=== PATIENT | female | born 1935 | race Caucasian/White ===

== ENCOUNTER 2020-07-19 18:08 | Emergency (ER) | payer MEDICARE, OTHER, SELFPAY ==
--- NOTE | ~2020-07-19 | XR_ITS ---
EXAMINATION: XR CHEST CLINICAL INFORMATION: Cough COMPARISON: None TECHNIQUE: Frontal view of the chest was obtained. FINDINGS: Compared to the prior study, lung volumes are slightly decreased and there is mild interstitial prominence. No gross consolidations, lung masses or pleural effusions are seen XR/XR chest 1V IMPRESSION: No acute intrathoracic disease. Mild interstitial prominence may represent some mild bronchitis.
[2020-07-19 19:19] VITALS: BP 200/93; PULSE 128; RESP 16; TEMP 36.7; O2SAT 97; BMI 38.0
[2020-07-19 20:00] LABS: Basophils Percent Auto 0.3 % (0-2); Hematocrit 38.1 % (37-47); Hemoglobin 11.9 g/dl (12.0-16.0); Imm Gran Abs Auto 0.03 X10*3/uL (0.00-0.03); Imm Gran Pct Auto 0.5 % (0.0-0.4); Lymphocytes Absolute Auto 0.7 X10*3/uL (1.2-4.9); MANUAL DIFF FLAG SCAN; Mean Corpuscular HGB Conc 31.2 g/dl (31.0-35.0); Mean Corpuscular Hemoglobin 26.7 pg (27.0-33.0); Mean Corpuscular Volume 85.4 fL (80-98); Mean Platelet Volume 10.4 fL (9.4-12.3); Monocytes Absolute Auto 0.3 X10*3/uL (0.1-1.2); Monocytes Percent Auto 4.8 % (2-11); Neutrophils Absolute Auto 5.5 X10*3/uL (2.0-8.3); Neutrophils Percent Auto 84.4 % (45-73); Platelet Count 277 X10*3/uL (160-400); Red Blood Count 4.46 X10*6/uL (4.20-5.50); Red Cell Distribution Width 12.5 % (11.0-16.0); SCAN SMEAR FLAG 1; White Blood Count 6.5 X10*3/uL (4.8-10.8)
[2020-07-19 20:19] LABS: Alanine Aminotransferase 15 U/L (0-31); Albumin Level 4.2 g/dL (3.5-5.0); Alkaline Phosphatase 65 U/L (39-117); Anion Gap 13 (12-20); Aspartate Amino Transferase 13 U/L (5-31); Bilirubin Total 0.5 mg/dL (0.0-1.0); Blood Urea Nitrogen 12 mg/dL (9-16); Calcium 9.5 mg/dL (8.4-10.2); Carbon Dioxide 28 mmol/L (22-29); Chloride 96 mmol/L (96-108); Creatinine Clr Calc Pharmacy 28.1; Estimated Glomerular Filt Rate > 60; Glucose Random 335 mg/dL (60-115); Potassium 4.4 mmol/L (3.3-5.1); Sodium 133 mmol/L (135-145); Total Protein 6.6 g/dL (6.5-8.0)
[2020-07-19 20:39] LABS: SLIDE REVIEW VERIFIED
--- NOTE | 2020-07-19 21:51 | ED_ITS ---
HPI - Altered Mental Status General Chief Complaint: Urogenital-Female Stated Complaint: ams Time Seen by Provider: 07/19/20 21:50 Source: family Mode of arrival: ambulatory Limitations: altered mental status History of Present Illness HPI narrative: Patient history of dementia brought by her daughter for increased confusion since today afternoon had similar episode when she had UTI in the past also noticed that patient has increased leg swelling and occasional dry cough. No chest pain no shortness of breath no black stools no nausea vomiting /abdominal pain MD complaint: altered mental status Onset (ago): hour(s) Timing confirmed by: family member Severity: mild Consistency of symptoms: waxing and waning Related Data Previous Rx's Medication Instructions Recorded hydrochlorothiazide 12.5 mg PO QAM #20 tab 07/20/20 Allergies Allergy/AdvReac Type Severity Reaction Status Date / Time betablockers Allergy Unknown lathargic Uncoded 03/19/12 00:00 TEDROL AdvReac Unknown TACHYCARDIA Uncoded 01/01/20 15:18 Review of Systems Review of Systems: Constitutional : No Weight loss, No Fever, No Chills ENT/Mouth : No sore throat, No Rhinorrhea Eyes: No Eye Pain, No Swelling Cardiovascular : No Chest Pain, no palpitations Respiratory : + Cough, No Sputum, no shortness of breath Gastrointestinal : no Nausea, No Vomiting, No Diarrhea, No abdominal Pain, no black stools Genitourinary : No Dysuria, No Urinary Frequency Musculoskeletal : No joint pain, No Myalgias, No Joint Swelling Skin : No Skin Lesions, No rash Neuro : No Weakness, No Numbness, No Dizziness, No Headache Psych : No Anxiety/Panic, No Depression Heme/Lymph: No Bruising, No Lymphadenopathy Endocrine : No Polyuria, No Polydipsia All other systems reviewed and are negative per family member [facility], [facility] Past Medical History Medical History Alzheimer disease Diabetes High cholesterol Hypertension Surgical History History of hip replacement, total Social History Social History Smoking Status: Former smoker Use of substances other than those prescribed or required for medical reasons: No Advance Directives: No Advance Directives Information Provided: No Physical Exam Vital Signs: Vital Signs: Last Vital Signs Temp 98.6 F 07/19/20 22:00 Pulse 115 H 07/19/20 22:00 Resp 18 07/19/20 22:00 BP 176/86 H 07/19/20 22:00 Pulse Ox 97 07/19/20 22:00 Body Mass Index 38.0 Const: General: comfortable and no acute distress Orie ntation/consciousness: oriented to person and oriented to place HENMT: Head: Yes normocephalic and Yes atraumatic Ears: hearing grossly impaired Mouth: Normal oral and palatal mucosa present Eyes: General: appearance normal, both eyes and all related structures C onjunctivae: conjunctivae normal Sclerae: sclerae normal Neck: Neck: Yes normal visual inspection, Yes full ROM and Yes no JVD Chest: Chest palpation & inspection: normal inspection of the chest Resp: Effort & Inspection: normal respiratory effort Auscultation: clear to auscultation bilaterally Cardio: Palpation: normal PMI Rate: regular rate Rhythm: regular rhythm Heart sounds: S1 normal heart sound present, S2 normal heart sound present and Murmur heart sound present GI: Inspection: Yes normal to inspection Palpation (GI): Soft to palpation Auscultation: normal bowel sounds : General: Yes no CVA tenderness Back/Spine/Pelvis: Back: no CVA tenderness Thoracic/Lumbar Spine: thoracic and lumbar spine normal to inspection Skin: General skin exam: no rashes or lesions noted Neuro: General: oriented to person, oriented to place, gait normal, tone normal, moves all extremities, no focal motor deficits and CN's II-XI intact bilaterally Extrem: General: Yes full ROM, Yes no calf tenderness, Yes normal gait and Yes pedal edema (4+) MDM - Altered Mental Status MDM Narrative Medical decision making narrative: Patient transient confusion likely from enzyme of dementia patient workup is negative for any significant infection urine is also negative for UTI patient is back to normal at this time patient's leg edema is likely from dependent . Will give hydrochlorothiazide daily advised patient to follow-up with PCP for further evaluation Differential Diagnosis Differential diagnosis: Likely altered mental status and dementia Lab Data Attestation: I reviewed the patient's lab results. Result diagrams: 07/19/20 19:50 07/19/20 19:50 Labs: Lab Results 04/05/21 04/05/21 04/05/21 Range/Units 19:50 19:50 19:50 WBC 6.5 (4.8-10.8) X10*3/uL RBC 4.46 (4.20-5.50) X10*6/uL Hgb 11.9 L (12.0-16.0) g/dl Hct 38.1 (37-47) % MCV 85.4 (80-98) fL MCH 26.7 L (27.0-33.0) pg MCHC 31.2 (31.0-35.0) g/dl RDW 12.5 (11.0-16.0) % Plt Count 277 (160-400) X10*3/uL MPV 10.4 (9.4-12.3) fL Immature Gran % (Auto) 0.5 H (0.0-0.4) % Neut % (Auto) 84.4 H (45-73) % Lymph % (Auto) 10.0 L (20-40) % [place] % (Auto) 4.8 (2-11) % Eos % (Auto) 0.0 (0-4) % Baso % (Auto) 0.3 (0-2) % Lymph # (Auto) 0.7 L (1.2-4.9) X10*3/uL [place] # (Auto) 0.3 (0.1-1.2) X10*3/uL Eos # (Auto) 0.0 (0.0-0.4) X10*3/uL Baso # (Auto) 0.0 (0.0-0.2) X10*3/uL Abs Immat Gran (auto) 0.03 (0.00-0.03) X10*3/uL Absolute Neuts (auto) 5.5 (2.0-8.3) X10*3/uL Absolute Nucleated RBC 0.000 (0.0-0.012) X10*3/uL Nucleated RBC % (auto) 0.0 (0.0-0.2) /100WBC Smear Tech's Comments VERIFIED Hold Blue Top SEE NOTE Sodium 133 L (135-145) mmol/L Potassium 4.4 (3.3-5.1) mmol/L Chloride 96 (96-108) mmol/L Carbon Dioxide 28 (22-29) mmol/L Anion Gap 13 (12-20) BUN 12 (9-16) mg/dL Creatinine 0.84 (0.5-1.4) mg/dL Estim Creat Clear Calc 28.1 Estimated GFR > 60 Random Glucose 335 H (60-115) mg/dL Calcium 9.5 (8.4-10.2) mg/dL Total Bilirubin 0.5 (0.0-1.0) mg/dL AST 13 (5-31) U/L ALT 15 (0-31) U/L Alkaline Phosphatase 65 (39-117) U/L B-Natriuretic Peptide (<100) pg/mL Total Protein 6.6 (6.5-8.0) g/dL Albumin 4.2 (3.5-5.0) g/dL Urine Color Urine Appearance Urine pH (5.0-8.0) Ur Specific [place] (1.005-1.025) Urine Protein (NEG-TRACE) MG/DL Urine Glucose (UA) (NEG) MG/DL Urine Ketones (NEG) MG/DL Urine Blood (NEG) Urine Nitrite (NEG) Ur Leukocyte Esterase (NEG) Urine RBC (0) /HPF Urine WBC (0-4) /HPF Ur Squamous Epith Cells /LPF Urine Bacteria /LPF Urine Mucus /LPF 07/19/20 07/19/20 Range/Units 19:50 23:25 WBC (4.8-10.8) X10*3/uL RBC (4.20-5.50) X10*6/uL Hgb (12.0-16.0) g/dl Hct (37-47) % MCV (80-98) fL MCH (27.0-33.0) pg MCHC (31.0-35.0) g/dl RDW (11.0-16.0) % Plt Count (160-400) X10*3/uL MPV (9.4-12.3) fL Immature Gran % (Auto) (0.0-0.4) % Neut % (Auto) (45-73) % Lymph % (Auto) (20-40) % [place]cl[place] % (Auto) (2-11) % Eos % (Auto) (0-4) % Baso % (Auto) (0-2) % Lymph # (Auto) (1.2-4.9) X10*3/uL [place] # (Auto) (0.1-1.2) X10*3/uL Eos # (Auto) (0.0-0.4) X10*3/uL Baso # (Auto) (0.0-0.2) X10*3/uL Abs Immat Gran (auto) (0.00-0.03) X10*3/uL Absolute Neuts (auto) (2.0-8.3) X10*3/uL Absolute Nucleated RBC (0.0-0.012) X10*3/uL Nucleated RBC % (auto) (0.0-0.2) /100WBC Smear Tech's Comments Hold Blue Top Sodium (135-145) mmol/L Potassium (3.3-5.1) mmol/L Chloride (96-108) mmol/L Carbon Dioxide (22-29) mmol/L Anion Gap (12-20) BUN (9-16) mg/dL Creatinine (0.5-1.4) mg/dL Estim Creat Clear Calc Estimated GFR Random Glucose (60-115) mg/dL Calcium (8.4-10.2) mg/dL Total Bilirubin (0.0-1.0) mg/dL AST (5-31) U/L ALT (0-31) U/L Alkaline Phosphatase (39-117) U/L B-Natriuretic Peptide 76 (<100) pg/mL Total Protein (6.5-8.0) g/dL Albumin (3.5-5.0) g/dL Urine Color YELLOW Urine Appearance CLEAR Urine pH 5.5 (5.0-8.0) Ur Specific [place] >= 1.030 H (1.005-1.025) Urine Protein 1+ H (NEG-TRACE) MG/DL Urine Glucose (UA) 500 H (NEG) MG/DL Urine Ketones 15 (NEG) MG/DL Urine Blood TRACE (NEG) Urine Nitrite NEG (NEG) Ur Leukocyte Esterase NEG (NEG) Urine RBC 0-2 (0) /HPF Urine WBC 1-4 (0-4) /HPF Ur Squamous Epith Cells TRACE /LPF Urine Bacteria NONE /LPF Urine Mucus TRACE /LPF Discharge Plan Discharge Clinical Impression: Dependent edema Dementia Qualifiers: Dementia type: Alzheimer's Alzheimer's disease onset: late-onset Dementia behavioral disturbance: without behavioral disturbance Qualified Code(s): G30.1 - Alzheimer's disease with late onset Patient Disposition: Home, Self-Care Instructions: Alzheimer Disease (DC), Leg Edema (ED) Additional Instructions: Keep the legs elevated. Take water pill daily for increased swelling as needed. Follow-up with your PCP Prescriptions: New hydrochlorothiazide 12.5 mg tablet 12.5 mg PO QAM Qty: 20 RF: 0
[2020-07-19 22:00] VITALS: BP 176/86; PULSE 115; RESP 18; TEMP 37; O2SAT 97
[2020-07-19 22:34] LABS: B Type Natriuretic Peptide 76 pg/mL (<100)
[2020-07-19 23:46] LABS: Glucose Urine UA 500 MG/DL (NEG); Leukocyte Esterase Urine NEG (NEG); Nitrite Urine NEG (NEG); PH 5.5 (5.0-8.0); Specific Gravity - Urine >= 1.030 (1.005-1.025); Urine Blood TRACE (NEG); Urine Ketones 15 MG/DL (NEG); Urine Protein 1+ MG/DL (NEG-TRACE)
[2020-07-19 23:52] LABS: Appearance Urine CLEAR; Color Urine YELLOW
[2020-07-20 00:02] LABS: Mucus Urine TRACE /LPF; RBC Urine 0-2 /HPF (0); Squamous Epithelial Cell Urine TRACE /LPF
== END 2020-07-20 00:27 | disposition home or self-care (01) ==
PROVIDERS: Emergency Provider Internal Medicine; PCP Internal Medicine
DX: G30.1 Alzheimer's disease with late onset (principal); R41.82 Altered mental status, unspecified; R60.0 Localized edema; R05 Cough; Z79.899 Other long term (current) drug therapy; Z87.891 Personal history of nicotine dependence
CPT/HCPCS: 36415; 71045; 80053; 81001; 83880; 85025; 99284

== ENCOUNTER 2020-12-11 14:30 | Emergency (ER) | payer MEDICARE, OTHER, SELFPAY ==
--- NOTE | ~2020-12-11 | XR_ITS ---
EXAMINATION: XR CHEST CLINICAL INFORMATION: Lower extremity swelling. Evaluate for CHF. COMPARISON: Chest x-ray July 19, 2020 TECHNIQUE: 2 views of the chest were obtained. FINDINGS: Cardiac silhouette is normal in size. Atherosclerotic disease of the aortic arch. The lungs are well aerated. There is no lobar consolidation. No pleural effusion or pneumothorax. Diffuse osteopenia with mild degenerative changes of the spine. Mild anterior compression deformity of a lower thoracic vertebral body. XR/XR chest 2V IMPRESSION: No acute pulmonary pathology.
--- NOTE | ~2020-12-11 | CT_ITS ---
EXAMINATION: CT HEAD WITHOUT CONTRAST CLINICAL INFORMATION: AMS COMPARISON: None TECHNIQUE: Contiguous axial imaging was performed from the skull base to vertex without intravenous administration of contrast. This CT examination was performed using dose optimization techniques as appropriate, variously including the following: *Automated exposure control *Adjustment of mA and/or kV according to patient size (this includes techniques or standardized protocols for targeted exams where dose is matched to indication/reason for exam; i.e. extremities or head) *Use of iterative reconstruction technique DLP: 573 mGy-cm FINDINGS: There is no evidence of acute intracranial hemorrhage or territorial infarction. No abnormal mass effect or midline shift is seen. Salguero to white matter differentiation is preserved. No extra-axial fluid collections are identified. Ventricles, sulci, and cisterns are prominent consistent with atrophy.. There is a large amount of periventricular white matter low density present consistent with microangiopathy. 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 The osseous structures and soft tissues are normal. The mastoid air cells and visualized portions of the paranasal sinuses are well aerated. CT/CT head/brain wo con IMPRESSION: No acute intracranial pathology. Microangiopathy.
--- NOTE | 2020-12-11 14:43 | ECG_ITS ---
Test Reason : GENERAL MED Blood Pressure : / mmHG Vent. Rate : 107 BPM Atrial Rate : 107 BPM P-R Int : 142 ms QRS Dur : 120 ms QT Int : 380 ms P-R-T Axes : 074 -01 073 degrees QTc Int : 507 ms Sinus tachycardia with Premature atrial complexes Right bundle branch block Possible Inferior infarct , age undetermined T wave abnormality, consider lateral ischemia Abnormal ECG When compared with ECG of 02-FEB-2014 10:31, Premature atrial complexes are now Present Right bundle branch block is now Present Referred By: Terri Álvarez Electronically Signed By:EVIN MOLINA
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
[2020-12-11 14:48] VITALS: BP 121/71; PULSE 111; RESP 18; TEMP 36.7; BMI 23.4
[2020-12-11 15:00] VITALS: BP 121/71; PULSE 111; RESP 18; TEMP 36.7; O2SAT 98
[2020-12-11 15:57] LABS: MANUAL DIFF FLAG NO
[2020-12-11 16:16] LABS: COVID-19 Test Negative (Negative)
[2020-12-11 16:18] LABS: Basophils Percent Auto 0.5 % (0-2); Eosinophils Absolute Auto 0.1 X10*3/uL (0.0-0.4); Eosinophils Percent Auto 1.1 % (0-4); Hematocrit 33.7 % (37-47); Hemoglobin 10.8 g/dl (12.0-16.0); Imm Gran Abs Auto 0.03 X10*3/uL (0.00-0.03); Imm Gran Pct Auto 0.5 % (0.0-0.4); Lymphocytes Absolute Auto 0.8 X10*3/uL (1.2-4.9); Lymphocytes Percent Auto 11.5 % (20-40); Mean Corpuscular Hemoglobin 27.9 pg (27.0-33.0); Mean Corpuscular Volume 87.1 fL (80-98); Mean Platelet Volume 9.7 fL (9.4-12.3); Monocytes Absolute Auto 0.6 X10*3/uL (0.1-1.2); Monocytes Percent Auto 9.7 % (2-11); Neutrophils Percent Auto 76.7 % (45-73); Platelet Count 279 X10*3/uL (160-400); Red Blood Count 3.87 X10*6/uL (4.20-5.50); Red Cell Distribution Width 12.4 % (11.0-16.0); White Blood Count 6.5 X10*3/uL (4.8-10.8)
[2020-12-11 16:43] LABS: Alanine Aminotransferase 14 U/L (0-31); Albumin Level 3.7 g/dL (3.5-5.0); Alkaline Phosphatase 64 U/L (39-117); Anion Gap 12 (12-20); Aspartate Amino Transferase 23 U/L (5-31); Bilirubin Direct < 0.2 mg/dL (0.0-0.5); Bilirubin Total 0.2 mg/dL (0.0-1.0); Blood Urea Nitrogen 13 mg/dL (9-16); Calcium 9.3 mg/dL (8.4-10.2); Carbon Dioxide 29 mmol/L (22-29); Chloride 100 mmol/L (96-108); Creatinine Clr Calc Pharmacy 35.8; Estimated Glomerular Filt Rate > 60; Glucose Random 261 mg/dL (60-115); Potassium 3.9 mmol/L (3.3-5.1); Sodium 137 mmol/L (135-145); Total Protein 5.8 g/dL (6.5-8.0)
[2020-12-11 16:46] LABS: B Type Natriuretic Peptide 88 pg/mL (<100)
[2020-12-11 17:40] VITALS: BP 140/81; PULSE 113; RESP 19; O2SAT 99
[2020-12-11 17:42] LABS: Glucose Urine UA 250 MG/DL (NEG); Leukocyte Esterase Urine 1+ (NEG); Nitrite Urine NEG (NEG); PH 5.5 (5.0-8.0); Specific Gravity - Urine 1.025 (1.005-1.025); UACC Culture Trigger YES; Urine Blood NEG (NEG); Urine Ketones NEG (NEG); Urine Protein NEG (NEG-TRACE)
[2020-12-11 17:44] LABS: Appearance Urine CLEAR; Color Urine YELLOW
[2020-12-11 18:14] LABS: Bacteria Urine TRACE /LPF; Mucus Urine 3+ /LPF; RBC Urine 0 /HPF (0); Squamous Epithelial Cell Urine 2+ /LPF
[2020-12-11 19:19] VITALS: BP 123/57; PULSE 104; RESP 18; O2SAT 95
--- NOTE | 2020-12-11 19:23 | PC.NURSE ---
Pt found sitting upright in bed, calm and cooperative at this time. Daughter at bedside inquiring as to when she will have an eval by the Care Team, daughter stating she has to leave soon. Per daughter to contact herself or her sister via phone regarding plan of care. Florencia Mendenhall [phone] E[place] [phone]. Pt denies pain, VSS at this time. Pt provided with call sandoval. Denies any needs at this time.
--- NOTE | 2020-12-11 20:24 | PC.NURSE ---
Pt medicated per MAR with PO ABX. Pills cut in half, pt swallowing without difficulty.
--- NOTE | 2020-12-11 21:51 | PC.NURSE ---
This RN speaking with Care Team, Care team to visit with pt and possibly plan to return pt to LTC facility with oral ABX. Zyprexa added from MD @ LTC for aggression. Pt sleeping in bed at this time in NAD.
--- NOTE | 2020-12-11 22:33 | PC.NURSE ---
EMS called for transport back to facility.
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
--- NOTE | 2020-12-11 23:15 | PC.NURSE ---
EMS at bedside for transport.
--- NOTE | 2020-12-11 23:21 | PC.NURSE ---
Nurse to nurse report given to [facility].
== END 2020-12-11 23:15 | disposition skilled nursing facility (03) ==
PROVIDERS: Nurse Practitioner Family; Emergency Provider Emergency Medicine; PCP Internal Medicine
DX: N39.0 Urinary tract infection, site not specified (principal); G30.9 Alzheimer's disease, unspecified; F02.81 Dementia in other diseases classified elsewhere, unspecified severity, with behavioral disturbance; R60.0 Localized edema; E11.9 Type 2 diabetes mellitus without complications; E78.5 Hyperlipidemia, unspecified; I10 Essential (primary) hypertension; Z20.822 Contact with and (suspected) exposure to COVID-19
CPT/HCPCS: 36415; 51701; 70450; 71046; 80048; 80076; 81001; 83880; 85025; 87086; 87635; 93005; 99284

== ENCOUNTER 2021-02-04 00:16 | Emergency (ER) | payer MEDICARE, OTHER, SELFPAY ==
--- NOTE | ~2021-02-04 | CT_ITS ---
EXAMINATION: NONCONTRAST HEAD CT NONCONTRAST CERVICAL SPINE CT INDICATION INFORMATION: Fall COMPARISON: 12/11/2020 TECHNIQUE: Separate noncontrast CT examinations of the head and cervical spine were performed. Coronal head CT images and coronal and sagittal cervical spine images were created at the technologist workstation. DLP: 862 mGy-cm DOSE LOWERING TECHNIQUES: This CT examination was performed using dose optimization techniques as appropriate, variously including the following: - Automated exposure control - Adjustment of mA and/or kV according to patient size (this includes techniques or standardized protocols for targeted exams were dose is matched to indication/reason for exam; i.e. extremities or head) - Use of iterative reconstruction technique FINDINGS: Head: There is no evidence of acute intracranial hemorrhage or territorial infarction. No abnormal mass-effect or midline shift is seen. Salguero to white matter differentiation is well preserved. No extra-axial fluid collections are identified. The ventricles are normal in size. There is moderate periventricular white matter hypoattenuation consistent with chronic small vessel ischemic disease. Mild volume loss is noted. The osseous structures and soft tissues are normal. The mastoid air cells and visualized portions of the paranasal sinuses are well-aerated. Cervical spine: There is grade 1 anterolisthesis of C5 on C6, favored to be chronic/degenerative in nature. Vertebral body heights are maintained. There is disc space narrowing and endplate osteophyte formation, most prominently in the lower cervical spine. There is extensive multilevel facet arthropathy. No evidence of acute fracture. No prevertebral soft tissue swelling. Approximately 11 mm mixed solid and groundglass focus noted in the medial left upper lobe. The thyroid gland is unremarkable. CT/CT cervical spine wo con IMPRESSION: 1. No acute findings identified in the head or cervical spine. 2. Moderate to severe degenerative changes of the cervical spine. 3. Mixed solid and groundglass groundglass density in the medial left upper lobe. Follow-up chest CT in approximately 3 months is recommended to assess for resolution.
[2021-02-04 00:25] VITALS: BP 113/64; PULSE 84; RESP 16; TEMP 36.2; O2SAT 96; BMI 22.4
--- NOTE | 2021-02-04 00:26 | ED.HEATRA ---
HPI - Head Injury General Chief complaint: Fall Stated complaint: UNWITNESSED FALL/HEAD LAC Time Seen by Provider: 02/04/21 00:25 Source: EMS and RN notes reviewed Mode of arrival: EMS History of Present Illness HPI Narrative: Received severely demented DNR [facility]NI [facility] at [facility] came with lac at the back of the head otherwise at her baseline refusing any labs cardiogram Related Data Home Medications Medication Instructions Recorded Confirmed acetaminophen 325 mg tablet 650 mg PO Q4H PRN 12/11/20 12/11/20 albuterol sulfate 90 mcg/actuation 2 puff INHALATION Q4-6H PRN 12/11/20 12/11/20 aerosol inhaler (ProAir HFA) aspirin 81 mg capsule,delayed 81 mg PO DAILY 12/11/20 12/11/20 release bisacodyl 10 mg rectal suppository 10 mg UT DAILY PRN 12/11/20 12/11/20 cyanocobalamin (vitamin B-12) 1,000 mcg PO DAILY 12/11/20 12/11/20 1,000 mcg tablet hydrochlorothiazide 50 mg tablet 50 mg PO Q OTHER DAY 12/11/20 12/11/20 insulin glargine 100 unit/mL 9 unit SUBCUT DAILY 12/11/20 12/11/20 subcutaneous solution (Lantus U-100 Insulin) lisinopril 10 mg tablet 10 mg PO DAILY 12/11/20 12/11/20 melatonin 5 mg tablet 5 mg PO BEDTIME 12/11/20 12/11/20 metformin 500 mg tablet 1,000 mg PO BID 12/11/20 12/11/20 montelukast 10 mg tablet 10 mg PO DAILY 12/11/20 12/11/20 olanzapine 2.5 mg tablet (Zyprexa) 2.5 mg PO DAILY 12/11/20 12/11/20 omeprazole 20 mg capsule,delayed 20 mg PO DAILY 12/11/20 12/11/20 release sennosides 8.6 mg tablet (Senna 17.2 mg PO DAILY PRN 12/11/20 12/11/20 Laxative) verapamil 240 mg tablet,extended 240 mg PO DAILY 12/11/20 12/11/20 release Previous Rx's Medication Instructions Recorded cefuroxime axetil 500 mg tablet 500 mg PO Q12H 7 Days #14 tab 12/11/20 Allergies Allergy/AdvReac Type Severity Reaction Status Date / Time bupropion Allergy Unresponsiv Verified 02/04/21 00:25 e betablockers Allergy Unknown lathargic Uncoded 03/19/12 00:00 TEDROL AdvReac Unknown TACHYCARDIA Uncoded 01/01/20 15:18 Review of Systems Review of Systems: Yes Unobtainable due to mental status (Severe dementia) Neurologic: Reports confusion Psychiatric: Psychiatric: Reports confusion COUNTS INCLUDE 234 BEDS AT THE [facility] Past Medical History Medical History Alzheimer disease Diabetes High cholesterol Hypertension Surgical History History of hip replacement, total Social History Social History Patient Tobacco Use Status: Former Tobacco user Use of substances other than those prescribed or required for medical reasons: No Physical Exam Vital Signs: Vital Signs: Last Vital Signs Temp 97.2 F 02/04/21 00:25 Pulse 105 H 02/04/21 01:02 Resp 16 02/04/21 01:02 BP 154/71 H 02/04/21 01:02 Pulse Ox 96 02/04/21 00:25 Body Mass Index 22.4 Const: General: no acute distress and confusion Nutritional Appearance: thin Orientation/consciousness: oriented to person and confusion HENMT: Head: Yes normocephalic Head images: 1. 3 cm laceration on the left occipital area Eyes: General: appearance normal, both eyes and all related structures Neck: Neck: Yes normal visual inspection and No tender Chest: Chest palpation & inspection: normal inspection of the chest Resp: Effort & Inspection: normal respiratory effort Auscultation: clear to auscultation bilaterally Cardio: Palpation: normal PMI Rate: regular rate Rhythm: regular rhythm Heart sounds: S1 normal heart sound present and S2 normal heart sound present GI: Inspection: Yes normal to inspection Palpation (GI): Soft to palpation and nontender Auscultation: normal bowel sounds Neuro: General: oriented to person, no focal motor deficits and confusion Extrem: General: Yes normal to inspection and Yes full ROM MDM - Head Injury ECG Data Attestation: I personally reviewed and interpreted this ECG as follows: Interpretation: Sinus tachycardia heart rate 101 beats per minute admit the branch block no acute ST deviation no acute ischemia Procedures Laceration Laceration 1: Site: scalp Side (If applicable): left Size (cm): 3 Description: linear Skin layer closed with: other (Three juli) Discharge Plan Discharge Clinical Impression: Head injury Qualifiers: Encounter type: initial encounter Qualified Code(s): S09.90XA - Unspecified injury of head, initial encounter Patient Disposition: Home, Self-Care Instructions: Head Injury (ED) Additional Instructions: Staple removal in 1 week Care as advised Head CT and C-spine CT was negative Prescriptions: No Action metformin 500 mg Tablet 1,000 mg PO BID RF: 0 sennosides [Senna Laxative] 8.6 mg Tablet 17.2 mg PO DAILY PRN (Reason: Constipation) RF: 0 acetaminophen 325 mg Tablet 650 mg PO Q4H PRN (Reason: Mild Pain (Scale Score 1-4)) RF: 0 Lantus U-100 Insulin 100 unit/mL Solution 9 unit SUBCUT DAILY RF: 0 hydrochlorothiazide 50 mg Tablet 50 mg PO Q OTHER DAY RF: 0 cyanocobalamin (vitamin B-12) 1,000 mcg Tablet 1,000 mcg PO DAILY RF: 0 olanzapine [Zyprexa] 2.5 mg Tablet 2.5 mg PO DAILY RF: 0 aspirin 81 mg Capsule,Delayed Release(Dr/Ec) 81 mg PO DAILY RF: 0 bisacodyl 10 mg Suppository 10 mg UT DAILY PRN (Reason: Constipation) RF: 0 lisinopril 10 mg Tablet 10 mg PO DAILY RF: 0 omeprazole 20 mg Capsule,Delayed Release(Dr/Ec) 20 mg PO DAILY RF: 0 verapamil 240 mg Tablet Extended Release 240 mg PO DAILY RF: 0 montelukast 10 mg Tablet 10 mg PO DAILY RF: 0 albuterol sulfate [ProAir HFA] 90 mcg/actuation Hfa Aerosol Inhaler 2 puff INHALATION Q4-6H PRN (Reason: Wheezing) RF: 0 melatonin 5 mg Tablet 5 mg PO BEDTIME RF: 0 cefuroxime axetil 500 mg tablet 500 mg PO Q12H 7 Days Qty: 14 RF: 0
--- NOTE | 2021-02-04 00:27 | ECG_ITS ---
Test Reason : FALL Blood Pressure : / mmHG Vent. Rate : 101 BPM Atrial Rate : 101 BPM P-R Int : 156 ms QRS Dur : 126 ms QT Int : 372 ms P-R-T Axes : 073 015 061 degrees QTc Int : 482 ms Sinus tachycardia Right bundle branch block Nonspecific T wave abnormality Anterior leads Abnormal ECG When compared with ECG of 11-DEC-2020 15:36, Premature atrial complexes are no longer Present T wave inversion no longer evident in Lateral leads Referred By: Desmond Guerrier Electronically Signed By:MARY CALHOUN MD
--- NOTE | 2021-02-04 00:36 | PC.NURSE ---
pt refusing to address change clerk and have EKG done
[2021-02-04 01:02] VITALS: BP 154/71; PULSE 105; RESP 16
--- NOTE | 2021-02-04 01:05 | PC.NURSE ---
On second attempt, pt was able to jacket changer. Will attempt EKG.
[2021-02-04 01:52] VITALS: BP 120/68; PULSE 101; RESP 16; O2SAT 98
--- NOTE | 2021-02-04 02:03 | PC.NURSE ---
laceration cleaned and juli applied. Plan is for pt to be discharged to SNF
[2021-02-04 02:25] VITALS: RESP 16
[2021-02-04 04:08] VITALS: RESP 16
--- NOTE | 2021-02-04 04:09 | PC.NURSE ---
pt assisted to bedside commode, nohemy care and pt assisted back to bed with call sandoval at the bedside.
--- NOTE | 2021-02-04 06:02 | PC.NURSE ---
tried to get up dated vitals on patient and she refused saying we had gotten enough from her .
[2021-02-04 06:05] VITALS: RESP 16
--- NOTE | 2021-02-04 06:11 | PC.NURSE ---
pt is sleeping and waiting to chair van ride to facility.
--- NOTE | 2021-02-04 07:14 | PC.NURSE ---
hearing aide in belonging bag, Report given to receiving facility [facility].
== END 2021-02-04 08:09 | disposition home or self-care (01) ==
LOC: HO.ED 01:53
PROVIDERS: Emergency Provider Internal Medicine
DX: S01.01XA Laceration without foreign body of scalp, initial encounter (principal); G44.309 Post-traumatic headache, unspecified, not intractable; W01.0XXA Fall on same level from slipping, tripping and stumbling without subsequent striking against object, initial encounter; Y93.9 Activity, unspecified; Y92.9 Unspecified place or not applicable; Y99.9 Unspecified external cause status
CPT/HCPCS: 12002; 70450; 72125; 93005; 99284

== ENCOUNTER 2021-02-14 13:55 | Inpatient (IN) | payer MEDICARE, OTHER, SELFPAY ==
--- NOTE | ~2021-02-14 | XR_ITS ---
EXAMINATION: XR CHEST CLINICAL INFORMATION: Vomiting. Aspiration. Rule out pneumonia. COMPARISON: 12/11/2020 TECHNIQUE: Frontal view of the chest was obtained. FINDINGS: The lungs are well expanded. There is no focal consolidation, edema, or effusion. Bronchial wall thickening noted. No pneumothorax. The cardiomediastinal silhouette is within normal limits. No acute osseous abnormality. XR/XR chest 1V IMPRESSION: No consolidation. Bronchial wall thickening can be seen with a small airways process such as asthma or atypical/viral infection.
[2021-02-14 14:08] VITALS: BP 170/86; PULSE 115; RESP 20; TEMP 36.5; O2SAT 90; BMI 27.1
--- NOTE | 2021-02-14 14:21 | ECG_ITS ---
Test Reason : ASPIRATION Blood Pressure : / mmHG Vent. Rate : 119 BPM Atrial Rate : 119 BPM P-R Int : 146 ms QRS Dur : 112 ms QT Int : 334 ms P-R-T Axes : 072 055 055 degrees QTc Int : 469 ms Poor data quality Incomplete right bundle branch block ST & T wave abnormality, consider inferior ischemia Abnormal ECG No significant changes seen Referred By: Jose Tobias Electronically Signed By:MARY CALHOUN MD
--- NOTE | 2021-02-14 14:43 | ED_ITS ---
HPI - SOB/Dyspnea General Chief Complaint: Dyspnea Stated Complaint: SOB S/P ASPIRATION OF COFFEE THIS AM Time Seen by Provider: 02/14/21 14:07 Source: family (Daughter, Florencia) Mode of arrival: EMS Limitations: other (Patient is extremely hard of hearing, information comes from the patient's daughter) History of Present Illness HPI Narrative: 85-year-old female who was sent to the emergency department from her nursing facility for aspiration. The patient was drinking coffee at lunchtime when she started to choke. The daughter was told the patient then vomited and shortly after vomiting the patient's O2 saturation dropped to 60% on room air but she does not require home oxygen. The patient continued to have low O2 saturations and appeared short of breath therefore EMS was called and she was brought to the emergency department for evaluation. The daughter states the patient was not ill in any way prior to aspirating on the coffee. The patient does have a MOLST form and I did discuss this with the daughter. The patient is a do not intubate and do not resuscitate but the daughter wants the patient to receive care and treatment to include oxygen, antibiotics, and medications. Related Data Home Medications Medication Instructions Recorded Confirmed acetaminophen 325 mg tablet 650 mg PO Q4H PRN 12/11/20 02/14/21 albuterol sulfate 90 mcg/actuation 2 puff INHALATION Q4-6H PRN 12/11/20 02/14/21 aerosol inhaler (ProAir HFA) bisacodyl 10 mg rectal suppository 10 mg OR DAILY PRN 12/11/20 02/14/21 cyanocobalamin (vitamin B-12) 1,000 mcg PO DAILY 12/11/20 02/14/21 1,000 mcg tablet insulin glargine 100 unit/mL 6 unit SUBCUT DAILY 12/11/20 02/14/21 subcutaneous solution (Lantus U-100 Insulin) lisinopril 10 mg tablet 10 mg PO DAILY 12/11/20 02/14/21 melatonin 5 mg tablet 5 mg PO BEDTIME 12/11/20 02/14/21 metformin 500 mg tablet 1,000 mg PO BID 12/11/20 02/14/21 montelukast 10 mg tablet 10 mg PO DAILY 12/11/20 02/14/21 omeprazole 20 mg capsule,delayed 20 mg PO DAILY 12/11/20 02/14/21 release sennosides 8.6 mg tablet (Senna 17.2 mg PO DAILY PRN 12/11/20 02/14/21 Laxative) verapamil 240 mg tablet,extended 240 mg PO DAILY 12/11/20 02/14/21 release acetaminophen 325 mg tablet 650 mg PO BID 02/14/21 02/14/21 aspirin 81 mg tablet,delayed 81 mg PO DAILY 02/14/21 02/14/21 release furosemide 40 mg tablet 1 tab PO BID 02/14/21 02/14/21 insulin lispro 100 unit/mL See Protocol SUBCUT 02/14/21 subcutaneous solution latanoprost 0.005 % eye drops 1 drp OPHTHALMIC (EYE) BEDTIME 02/14/21 02/14/21 olanzapine 5 mg tablet 1 tab PO BEDTIME 02/14/21 02/14/21 trazodone 50 mg tablet 0.25 tab PO BID PRN 02/14/21 02/14/21 Allergies Allergy/AdvReac Type Severity Reaction Status Date / Time bupropion Allergy Unresponsiv Verified 02/04/21 00:25 e betablockers Allergy Unknown lathargic Uncoded 03/19/12 00:00 TEDROL AdvReac Unknown TACHYCARDIA Uncoded 01/01/20 15:18 Review of Systems Review of Systems: Yes Other (Unobtainable secondary to patient being very hard of hearing) [facility] Past Medical History Attestation statement: The following information was validated with the patient. [facility] Narrative: Past medical history: Diabetes mellitus, hypertension, hyperlipidemia, osteoarthritis, COPD, GERD, dementia, rheumatic aortic stenosis. Social history: Patient lives at a long-term care facility, she does not smoke cigarettes, she does not drink alcohol, she does not use drugs. Medical History Alzheimer disease Diabetes High cholesterol Hypertension Surgical History History of hip replacement, total Social History Social History Household Members: Other Housing: [facility] Do you presently have visiting nurse or other home services: Yes Alcohol intake: never Patient Tobacco Use Status: Former Tobacco user Advance Directives Date on File: 04/20/20 Physical Exam 2 Vital Signs: Vital Signs: Last Vital Signs Temp 98.6 F 02/15/21 16:00 Pulse 105 H 02/15/21 16:00 Resp 18 02/15/21 16:00 BP 126/90 H 02/15/21 16:00 Pulse Ox 97 02/15/21 16:00 Oxygen Flow Rate 4 02/14/21 14:08 Body Mass Index 27.1 Const: Other: Elderly female who is extremely hard of hearing, she is awake alert, she appears to be tachypneic, she does answer some questions appropriately. HENMT: Head: Yes normal to inspection, Yes normocephalic and Yes atraumatic Ears: external ears normal General nose exam: Normal external nose present Face and sinus: Yes normal facial exam Mouth: Normal oral and palatal mucosa present Throat: Yes posterior oropharynx normal Eyes: General: appearance normal, both eyes and all related structures Pupils: Equal, round and reactive pupils present Neck: Neck: Yes normal visual inspection, Yes no lymphadenopathy, Yes trachea midline and Yes supple Chest: Chest palpation & inspection: normal inspection of the chest and normal palpation of entire chest wall Resp: Effort & Inspection: normal respiratory effort and able to speak in complete sentences Auscultation: crackles (Bilateral bases) Cardio: Rate: regular rate Rhythm: regular rhythm Heart sounds: S1 normal heart sound present, S2 normal heart sound present and Murmur heart sound present systolic holo, III/ and at the right sternal border GI: Inspection: Yes normal to inspection Palpation (GI): Soft to palpation, nontender and no guarding Auscultation: normal bowel sounds : General: Yes no CVA tenderness Back/Spine/Pelvis: Back: no CVA tenderness Skin: General skin exam: no rashes or lesions noted Neuro: Cranial nerves: Yes CN's II-XII intact bilaterally and Yes Equal, round and reactive pupils present Cognition (Neuro): normal cognition Motor exam (neuro): 5/5 motor strength present throughout Extrem: Other: With all extremities symmetrically, trace to 1+ pitting edema symmetric Psych: Appearance: grossly normal Speech and movement: Normal speech and movement present Affect: normal affect Attitude: cooperative Course Course Course Narrative: 85-year-old female who presents to the emergency department for evaluation of hypoxia after choking on coffee and then vomiting. The patient was reported to have an O2 saturation of 60% on room air after she vomited and aspirated. Here in the emergency department the patient's the lowest O2 saturation was 78% on room air. Patient's presentation is consistent with an aspiration pneumonitis. Laboratory evaluation was ordered to include CBC, CMP, lactate, blood cultures x2, troponin, EKG and one-view chest x-ray. Patient will be treated for an aspiration pneumonia with Zosyn 4.[address] I will place the patient on oxygen via nasal cannula and also will attempt high-flow oxygen to see if this improves her respiratory rate. 1616: Laboratory evaluation: Anemia with an H&H of 10.7 and 34.2. CMP: Glucose elevated at 452, BUN elevated at 20, carbon dioxide at 31, chloride was low at 94. Urinalysis was positive for glucose and 1+ leukocyte esterase. Microscopic revealed 5-2 WBCs with trace bacteria. The COVID-19 was negative. Chest x-ray was reviewed by me I did not see any acute findings. Radiologist interpreted the EKG as bronchial wall thickening can be seen with his small airway process such as asthma or atypical/viral pneumonia. Twelve EKG revealed artifact secondary to the patient's tremors and rapid respiratory rate. The patient remains on 4-6 L of nasal cannula with an O2 saturation of 96%. Patient's respiratory rate is elevated at 28 but she could not tolerate high-flow oxygen. I will discuss the patient's presentation with the covering hospitalist. MDM - SOB/Dyspnea Lab Data Result diagrams: 02/15/21 07:43 02/15/21 07:43 Labs: Lab Results 02/14/21 02/14/21 02/14/21 Range/Units 14:53 14:53 14:54 WBC (4.8-10.8) X10*3/uL RBC (4.20-5.50) X10*6/uL Hgb (12.0-16.0) g/dl Hct (37.0-47.0) % MCV (80.0-98.0) fL MCH (27.0-33.0) pg MCHC (31.0-35.0) g/dl RDW (11.0-16.0) % Plt Count MPV (9.4-12.3) fL Immature Gran % (Auto) (0.0-0.4) % Neut % (Auto) (45-73) % Lymph % (Auto) (20-40) % Gilpin % (Auto) (2-11) % Eos % (Auto) (0-4) % Baso % (Auto) (0-2) % Lymph # (Auto) (1.2-4.9) X10*3/uL Gilpin # (Auto) (0.1-1.2) X10*3/uL Eos # (Auto) (0.0-0.4) X10*3/uL Baso # (Auto) (0.0-0.2) X10*3/uL Abs Immat Gran (auto) (0.00-0.03) X10*3/uL Absolute Neuts (auto) (2.0-8.3) x10*3/uL Absolute Nucleated RBC (0.0-0.012) X10*3/uL Nucleated RBC % (auto) (0.0-0.2) /100WBC Smear Tech's Comments Sodium 135 (135-145) mmol/L Potassium 4.0 (3.3-5.1) mmol/L Chloride 94 L (96-108) mmol/L Carbon Dioxide 31 H (22-29) mmol/L Anion Gap 14 (12-20) BUN 20 H D (9-16) mg/dL Creatinine 0.94 (0.5-1.4) mg/dL Estim Creat Clear Calc 33.8 Estimated GFR 57 POC Glucose (60-115) mg/dL Random Glucose 452 H* (60-115) mg/dL Lactic Acid 1.0 (0.5-2.0) mmol/L Calcium 8.6 D (8.4-10.2) mg/dL Total Bilirubin 0.3 (0.0-1.0) mg/dL AST 12 D (5-31) U/L ALT 11 (0-31) U/L Alkaline Phosphatase 193 H D (39-117) U/L Troponin I High Sens 8.8 (<3.5-17.0) ng/L Total Protein 6.5 (6.5-8.0) g/dL Albumin 3.9 (3.5-5.0) g/dL Lipase 17 (8-78) U/L COVID-19 ([facility]) (Negative) COVID-19 Clin Com 1102/14/21 02/14/21 Range/Units 14:55 15:45 17:22 WBC 8.4 (4.8-10.8) X10*3/uL RBC 4.00 L (4.20-5.50) X10*6/uL Hgb 10.7 L (12.0-16.0) g/dl Hct 34.2 L (37.0-47.0) % MCV 85.5 (80.0-98.0) fL MCH 26.8 L (27.0-33.0) pg MCHC 31.3 (31.0-35.0) g/dl RDW 13.2 (11.0-16.0) % Plt Count TNP MPV 10.1 (9.4-12.3) fL Immature Gran % (Auto) 0.7 H (0.0-0.4) % Neut % (Auto) 81.6 H (45-73) % Lymph % (Auto) 8.2 L (20-40) % Gilpin % (Auto) 8.0 (2-11) % Eos % (Auto) 1.1 (0-4) % Baso % (Auto) 0.4 (0-2) % Lymph # (Auto) 0.7 L (1.2-4.9) X10*3/uL Gilpin # (Auto) 0.7 (0.1-1.2) X10*3/uL Eos # (Auto) 0.1 (0.0-0.4) X10*3/uL Baso # (Auto) 0.0 (0.0-0.2) X10*3/uL Abs Immat Gran (auto) 0.06 H (0.00-0.03) X10*3/uL Absolute Neuts (auto) 6.86 (2.0-8.3) x10*3/uL Absolute Nucleated RBC 0.000 (0.0-0.012) X10*3/uL Nucleated RBC % (auto) 0.0 (0.0-0.2) /100WBC Smear Tech's Comments VERIFIED Sodium (135-145) mmol/L Potassium (3.3-5.1) mmol/L Chloride (96-108) mmol/L Carbon Dioxide (22-29) mmol/L Anion Gap (12-20) BUN (9-16) mg/dL Creatinine (0.5-1.4) mg/dL Estim Creat Clear Calc Estimated GFR POC Glucose 361 H* (60-115) mg/dL Random Glucose (60-115) mg/dL Lactic Acid (0.5-2.0) mmol/L Calcium (8.4-10.2) mg/dL Total Bilirubin (0.0-1.0) mg/dL AST (5-31) U/L ALT (0-31) U/L Alkaline Phosphatase (39-117) U/L Troponin I High Sens (<3.5-17.0) ng/L Total Protein (6.5-8.0) g/dL Albumin (3.5-5.0) g/dL Lipase (8-78) U/L COVID-19 ([facility]) Negative (Negative) COVID-19 Clin Com See Note Critical Care Time Critical Care Time Total Critical Care Time: 45 Attestation: Critical Care: The patient was critically ill with a high probability of imminent or life threatening deterioration. I spent greater than 30 minutes of discontinuous time evaluating the patient,delivering critical care at the bedside, discussing and evaluating pertinent data with consultants. Critical care time does not include time spent performing separately billable procedures or teaching. Total time spent performing critical care was 45 minutes. Discharge Plan Discharge Clinical Impression: Aspiration pneumonitis, Hypoxia Patient Disposition: Admitted As Inpatient Interventions: Admission Worksheet (ED) Last Done: 02/14/21 23:40 Discharge Date/Time: 02/14/21 23:40
--- NOTE | 2021-02-14 14:43 | PC.NURSE ---
pt continued to drop into the 80s on 4l nc. pt tried on venti mask and held 90% on 14l. d/t pt face being small trial on high flow cannula- pt did well- work of breathing decreased and o2 sat went to 99% pt was not able to tolerate the pressue of the cannula and refused. pt placed on 6l regular nc and is sating low 90s. plan to try a membreno if regular cannula sat starts to decrease. aware. cxr completed.
[2021-02-14 15:19] LABS: COVID-19 Test Negative (Negative); IDNOW Serial# 08D9AD1C
[2021-02-14 15:22] LABS: Alanine Aminotransferase 11 U/L (0-31); Albumin Level 3.9 g/dL (3.5-5.0); Alkaline Phosphatase 193 U/L (39-117); Anion Gap 14 (12-20); Aspartate Amino Transferase 12 U/L (5-31); Bilirubin Total 0.3 mg/dL (0.0-1.0); Blood Urea Nitrogen 20 mg/dL (9-16); Calcium 8.6 mg/dL (8.4-10.2); Carbon Dioxide 31 mmol/L (22-29); Chloride 94 mmol/L (96-108); Creatinine Clr Calc Pharmacy 33.8; Estimated Glomerular Filt Rate 57; Glucose Random 452 mg/dL (60-115); Lipase 17 U/L (8-78); Sodium 135 mmol/L (135-145); Total Protein 6.5 g/dL (6.5-8.0)
[2021-02-14 15:22] LABS: Troponin-I High Sensitivity 8.8 ng/L (<3.5-17.0)
[2021-02-14 15:55] LABS: Basophils Percent Auto 0.4 % (0-2); Eosinophils Absolute Auto 0.1 X10*3/uL (0.0-0.4); Eosinophils Percent Auto 1.1 % (0-4); Hematocrit 34.2 % (37.0-47.0); Hemoglobin 10.7 g/dl (12.0-16.0); Imm Gran Abs Auto 0.06 X10*3/uL (0.00-0.03); Imm Gran Pct Auto 0.7 % (0.0-0.4); Lymphocytes Absolute Auto 0.7 X10*3/uL (1.2-4.9); Lymphocytes Percent Auto 8.2 % (20-40); MANUAL DIFF FLAG SCAN; Mean Corpuscular HGB Conc 31.3 g/dl (31.0-35.0); Mean Corpuscular Hemoglobin 26.8 pg (27.0-33.0); Mean Corpuscular Volume 85.5 fL (80.0-98.0); Mean Platelet Volume 10.1 fL (9.4-12.3); Monocytes Absolute Auto 0.7 X10*3/uL (0.1-1.2); Neutrophils Absolute Auto 6.86 x10*3/uL (2.0-8.3); Neutrophils Percent Auto 81.6 % (45-73); PLT CLUMP 1; Red Cell Distribution Width 13.2 % (11.0-16.0); SCAN SMEAR FLAG 1
[2021-02-14] MEDS: Piperacillin Sodium/Tazobactam 4.5 GM in 0.9 % Sodium Chloride 100 ML IV (16:01)
[2021-02-14 16:07] VITALS: BP 160/67; PULSE 123; RESP 28; O2SAT 94
[2021-02-14 16:07] LABS: White Blood Count 8.4 X10*3/uL (4.8-10.8)
--- NOTE | 2021-02-14 16:08 | PC.NURSE ---
Patient resting on stretcher, skin flush, warm, dry. resp even, labord, w/ accessory muscle use, RR 28. tachy via tele at 126. maintaining O2 sat on 4lpm via NC. patient is awake and answering questions, denies pain, poor historian w/ hx dementia. daughter at bedside
[2021-02-14 16:29] LABS: SLIDE REVIEW VERIFIED
[2021-02-14] MEDS: 0.9 % Sodium Chloride 500 ML IV (16:40)
[2021-02-14] MEDS: Insulin Regular, Human 100 UNIT/ML 3 ML VIAL IVPUSH (18:02)
[2021-02-14 18:07] VITALS: BP 149/69; PULSE 126; RESP 26; O2SAT 92
--- NOTE | 2021-02-14 18:14 | P.HPHOSP_ITS ---
History of Present Illness Date of Service: 02/14/21 85-year-old female who was sent to the emergency department from her nursing facility for aspiration.? The patient was drinking coffee at lunchtime when she started to choke.? The daughter was told the patient then vomited and shortly after vomiting the patient's O2 saturation dropped to 60% on room air but she does not require home oxygen.? The patient continued to have low O2 saturations and appeared short of breath therefore EMS was called and she was brought to the emergency department for evaluation.? The daughter states the patient was not ill in any way prior to aspirating on the coffee.? The patient does have a MOLST form and I did discuss this with the daughter.? The patient is a do not intubate and do not resuscitate but the daughter wants the patient to receive care and treatment to include oxygen, antibiotics, and medications. ER course: Received supplemental O2 IV Zosyn. Given hydroxyzine seen for anxiety. Admit to the floor for further treatment Review of Systems Review of Systems: Daughter with patient Admits to shortness of breath Denies chest pain S nausea vomit PMFSH Medical History Alzheimer disease Diabetes High cholesterol Hypertension Pertinent family history: . Surgical History History of hip replacement, total Social History Alcohol intake: never Patient Tobacco Use Status: Former Tobacco user Use of substances other than those prescribed or required for medical reasons: No Advance Directives: Yes Advance Directives on File: Yes Advance Directives Date on File: 04/20/20 Meds Allergies Allergy/AdvReac Type Severity Reaction Status Date / Time bupropion Allergy Unresponsiv Verified 02/04/21 00:25 e betablockers Allergy Unknown lathargic Uncoded 03/19/12 00:00 TEDROL AdvReac Unknown TACHYCARDIA Uncoded 01/01/20 15:18 Active Medications: Current Medications Acetaminophen (Acetaminophen 325 Mg Tablet) 650 mg PO Q6H PRN PRN Reason: Pain, Mild (Pain Scale 1-3) Albuterol Sulfate (Albuterol Sulfate (0.083%) 2.5 Mg/3 Ml Vial.Neb) 2.5 mg INHALE RQ4H PRN PRN Reason: Shortness of Breath/Wheezing Hydroxyzine HCl (Hydroxyzine Hcl 50 Mg/Ml Vial) 25 mg IM RQ6H PRN PRN Reason: anxiety/restlessness Ondansetron HCl (Ondansetron Hcl 4 Mg/2 Ml Vial) 4 mg IVPUSH Q8H PRN PRN Reason: Nausea and Vomiting Sodium Chloride (0.9 % Sodium Chloride Flush 3 Ml Syringe) 3 ml IVFLUSH [facility] Medications Medication Instructions Recorded Confirmed Last Taken Type acetaminophen 325 mg tablet 650 mg PO Q4H PRN 12/11/20 12/11/20 Unknown History albuterol sulfate 90 mcg/actuation 2 puff INHALATION Q4-6H PRN 12/11/20 12/11/20 Unknown History aerosol inhaler (ProAir HFA) aspirin 81 mg capsule,delayed 81 mg PO DAILY 12/11/20 12/11/20 Unknown History release bisacodyl 10 mg rectal suppository 10 mg DC DAILY PRN 12/11/20 12/11/20 Unknown History cyanocobalamin (vitamin B-12) 1,000 mcg PO DAILY 12/11/20 12/11/20 Unknown History 1,000 mcg tablet hydrochlorothiazide 50 mg tablet 50 mg PO Q OTHER DAY 12/11/20 12/11/20 Unknown History insulin glargine 100 unit/mL 9 unit SUBCUT DAILY 12/11/20 12/11/20 Unknown History subcutaneous solution (Lantus U-100 Insulin) lisinopril 10 mg tablet 10 mg PO DAILY 12/11/20 12/11/20 Unknown History melatonin 5 mg tablet 5 mg PO BEDTIME 12/11/20 12/11/20 Unknown History metformin 500 mg tablet 1,000 mg PO BID 12/11/20 12/11/20 Unknown History montelukast 10 mg tablet 10 mg PO DAILY 12/11/20 12/11/20 Unknown History olanzapine 2.5 mg tablet (Zyprexa) 2.5 mg PO DAILY 12/11/20 12/11/20 Unknown History omeprazole 20 mg capsule,delayed 20 mg PO DAILY 12/11/20 12/11/20 Unknown History release sennosides 8.6 mg tablet (Senna 17.2 mg PO DAILY PRN 12/11/20 12/11/20 Unknown History Laxative) verapamil 240 mg tablet,extended 240 mg PO DAILY 12/11/20 12/11/20 Unknown History release Physical Exam Vital Signs and Narrative: Vital Signs: Last Vital Signs Temp 97.7 F 02/14/21 14:08 Pulse 126 H 02/14/21 18:07 Resp 26 H 02/14/21 18:07 BP 149/69 H 02/14/21 18:07 Pulse Ox 92 02/14/21 18:07 Oxygen Flow Rate 4 02/14/21 14:08 Body Mass Index 27.1 Const: Other: Anxious/tachypnea/confuse HENMT: Other: Membranes dry Resp: Other: Tachypneic; diminished all gallardo with dense expiratory wheezes throughout Cardio: Other: Tachycardic; no S4; positive S1-S2; no S3 murmurs rubs or gallops GI: Other: Soft/protuberant. Positive bowel sounds all 4 quadrants no tenderness or peritoneal signs Neuro: Other: Confused at baseline secondary to dementia Extrem: Other: No edema bilaterally Results Labs CBC and Chem 7: 02/14/21 15:45 02/14/21 14:54 Labs: Laboratory Results - last 24 hr 02/14/21 02/14/21 02/14/21 14:53 14:53 14:54 MCV MCH MCHC RDW Plt Count MPV Immature Gran % (Auto) Neut % (Auto) Lymph % (Auto) [place] % (Auto) Eos % (Auto) Baso % (Auto) Lymph # (Auto) [place] # (Auto) Eos # (Auto) Baso # (Auto) Abs Immat Gran (auto) Absolute Neuts (auto) Absolute Nucleated RBC Nucleated RBC % (auto) Smear Tech's Comments Anion Gap 14 Estim Creat Clear Calc 33.8 Estimated GFR 57 Random Glucose 452 H* Lactic Acid 1.0 Calcium 8.6 D Total Bilirubin 0.3 AST 12 D ALT 11 Alkaline Phosphatase 193 H D Troponin I High Sens 8.8 Total Protein 6.5 Albumin 3.9 Lipase 17 COVID-19 ([facility]) COVID-19 Clin Com 02/14/21 02/14/21 14:55 15:45 MCV 85.5 MCH 26.8 L MCHC 31.3 RDW 13.2 Plt Count TNP MPV 10.1 Immature Gran % (Auto) 0.7 H Neut % (Auto) 81.6 H Lymph % (Auto) 8.2 L [place] % (Auto) 8.0 Eos % (Auto) 1.1 Baso % (Auto) 0.4 Lymph # (Auto) 0.7 L [place] # (Auto) 0.7 Eos # (Auto) 0.1 Baso # (Auto) 0.0 Abs Immat Gran (auto) 0.06 H Absolute Neuts (auto) 6.86 Absolute Nucleated RBC 0.000 Nucleated RBC % (auto) 0.0 Smear Tech's Comments VERIFIED Anion Gap Estim Creat Clear Calc Estimated GFR Random Glucose Lactic Acid Calcium Total Bilirubin AST ALT Alkaline Phosphatase Troponin I High Sens Total Protein Albumin Lipase COVID-19 ([facility]) Negative COVID-19 Clin Com See Note Imaging Radiologist's Impressions: Impressions Chest X-Ray 02/14/21 14:21 IMPRESSION: No consolidation. Bronchial wall thickening can be seen with a small airways process such as asthma or atypical/viral infection. Assessment and Plan (1) Aspiration pneumonitis: Status: Acute 85-year-old female presents via ambulance to the emergency room after aspirating coffee a local SNF. Resident became acutely short of breath not responding to supplemental oxygen. Patient is a do not intubate and do not resuscitate but the daughter wants the patient to receive care and treatment to include oxygen, antibiotics, and medications. Receive Zosyn in the ER 1. Aspiration pneumonitis Continue IV Zosyn; pulse dose steroids. Titrate O2 to maintain sats greater than equal to 92% 2. Diabetes type 2 Will cover with sliding scale over night and just scale in the morning. Add back orals when indicated Expect sugars to rise secondary to steroids 3. Dementia Continue outpatient therapies 4. Hypertension Continue verapamil/ lisinopril/ hydrochlorothiazide as outpatient dosing DNR DNI Lovenox Quality Stroke Does the patient have a stroke diagnosis?: No VTE Prior VTE?: No VTE Risk Level:: Medical - moderate - high VTE Device Contraindication: Treatment Not Indicated VTE Drug Contraindication: N/A - Med Ordered
[2021-02-14] MEDS: hydrOXYzine HCL 50 MG/ML VIAL 25 MG IM (19:19)
[2021-02-14 19:23] VITALS: BP 162/72; PULSE 129; RESP 15; O2SAT 97
[2021-02-14 19:35] LABS: Appearance Urine CLEAR; Color Urine YELLOW; Glucose Urine UA >=1000 MG/DL (NEG); Leukocyte Esterase Urine TRACE (NEG); Nitrite Urine NEG (NEG); UACC Culture Trigger YES; Urine Blood NEG (NEG); Urine Ketones NEG (NEG); Urine Protein NEG (NEG-TRACE)
[2021-02-14] MEDS: Enoxaparin Sodium 40 MG/0.4 ML SYRINGE SUBCUT (19:43)
[2021-02-14 20:08] LABS: RBC Urine 0-2 /HPF (0); Squamous Epithelial Cell Urine 1+ /LPF
--- NOTE | 2021-02-14 20:33 | PC.NURSE ---
Pt incontinent of urine, provided with nohemy care and a complete bed change. Daughter remains at bedside. Pt and daughter aware of plan of care to await room assignment. Pharmacy at bedside for Med Rec.
[2021-02-14 20:55] LABS: Glucose, Whole Blood 224 mg/dL (60-115)
[2021-02-14] MEDS: Insulin Lispro 100 UNIT/ML 3 ML VIAL SUBCUT (20:57)
[2021-02-14 21:29] VITALS: PULSE 126; RESP 26; TEMP 37.3; O2SAT 99
--- NOTE | 2021-02-14 22:37 | PC.NURSE ---
Report given to Brisa RODAS on C.
[2021-02-14 23:12] LABS: Glucose, Whole Blood 361 mg/dL (60-115)
[2021-02-14 23:12] LABS: Glucose, Whole Blood 243 mg/dL (60-115)
[2021-02-14 23:43] LABS: Glucose, Whole Blood 113 mg/dL (60-115)
[2021-02-14 23:44] VITALS: BP 133/72; PULSE 120; RESP 20; TEMP 36.4; O2SAT 100
[2021-02-15] MEDS: 0.9 % Sodium Chloride Flush 3 ML SYRINGE IVFLUSH ×4 (00:05→22:47)
[2021-02-15 00:38] VITALS: BMI 26.4
[2021-02-15] MEDS: hydrOXYzine HCL 50 MG/ML VIAL 25 MG IM (01:12)
[2021-02-15 03:25] VITALS: BP 105/60; PULSE 114; RESP 19; TEMP 36.5; O2SAT 91
[2021-02-15 07:50] VITALS: BP 114/55; PULSE 105; RESP 18; O2SAT 86
[2021-02-15 07:50] LABS: MANUAL DIFF FLAG NO
[2021-02-15 08:01] LABS: Glucose, Whole Blood 220 mg/dL (60-115)
[2021-02-15 08:03] LABS: Anion Gap 14 (12-20); Blood Urea Nitrogen 14 mg/dL (9-16); Calcium 8.7 mg/dL (8.4-10.2); Carbon Dioxide 33 mmol/L (22-29); Chloride 97 mmol/L (96-108); Creatinine Clr Calc Pharmacy 39.7; Estimated Glomerular Filt Rate > 60; Glucose Random 211 mg/dL (60-115); Potassium 4.1 mmol/L (3.3-5.1); Sodium 140 mmol/L (135-145)
[2021-02-15 08:08] LABS: Basophils Percent Auto 0.2 % (0-2); Eosinophils Percent Auto 0.2 % (0-4); Hemoglobin 9.9 g/dl (12.0-16.0); Imm Gran Abs Auto 0.05 X10*3/uL (0.00-0.03); Imm Gran Pct Auto 0.4 % (0.0-0.4); Lymphocytes Absolute Auto 0.8 X10*3/uL (1.2-4.9); Lymphocytes Percent Auto 5.4 % (20-40); Mean Corpuscular HGB Conc 30.9 g/dl (31.0-35.0); Mean Corpuscular Hemoglobin 26.5 pg (27.0-33.0); Mean Corpuscular Volume 85.8 fL (80.0-98.0); Mean Platelet Volume 9.8 fL (9.4-12.3); Monocytes Percent Auto 7.2 % (2-11); Neutrophils Absolute Auto 12.24 x10*3/uL (2.0-8.3); Neutrophils Percent Auto 86.6 % (45-73); Platelet Count 327 X10*3/uL (160-400); Red Blood Count 3.73 X10*6/uL (4.20-5.50); Red Cell Distribution Width 13.2 % (11.0-16.0); White Blood Count 14.1 X10*3/uL (4.8-10.8)
[2021-02-15 08:12] VITALS: TEMP 36.2; O2SAT 92
--- NOTE | 2021-02-15 09:59 | MHC.CDI.CONC ---
CDI Concurrent Query Documentation Clarification: PHYSICIAN'S DOCUMENTATION REQUEST Date of Query: 02/15/21 1000 Patient Name: Sonia Castellanos Admit Date: 02/14/21 Dear Doctor, A review of the medical record indicates additional documentation may be needed. Please review below and update the documentation accordingly. Clinical Indicators: The following diagnoses or signs and symptoms were noted in the patient record: Based on the clinical indicators below please provide a diagnosis associated with the evidence of respiratory issues present on arrival, resolved, treated etc. Risk Factors/Clinical Indicators/Treatments Aspiration pneumonia POA, shortness of breath at SNF, cough, appears to have low O2 saturations, pulse ox 90, NC 4 Liters, RR 26 HR 126 Diminished all gallardo with dense expiratory wheezing throughout. On 4-6 liters NC with an O2 sat at 92% RR elevated to 28 but could not tolerate high flow oxygen. Based on the above, could you clarify in the Progress Notes the appropriate diagnosis, if significant, that supports the above abnormalities and additional evaluation, monitoring, and/or treatment rendered: Condition 1 (please specify) Condition 2 (please specify) Other (please specify) Unable to determine Use of terms such as suspected, likely, concern for, or probable (associated with a specific diagnosis that is being evaluated, monitored, or treated as if it exists) are acceptable and can be coded in the inpatient setting, when documented at the time of discharge. Thank you, Chiara Escobar [facility], CDIS Extension: [phone] Please use your independent medical judgment in providing your response. THIS QUERY IS PART OF THE PERMANENT MEDICAL RECORD Provider Response: Other Other Diagnosis: Based on the clinical presentation and physical exam patient has an aspiration pneumonitis
[2021-02-15 11:32] VITALS: BP 105/53; PULSE 100; RESP 18; TEMP 36.1; O2SAT 98
[2021-02-15 11:39] LABS: Glucose, Whole Blood 178 mg/dL (60-115)
--- NOTE | 2021-02-15 14:59 | HO.PM.IMPN ---
Subjective Subjective Date of Service: 02/15/21 Interval History: More somnolent this a.m.; essentially nonverbal Review of Systems Per staff; no complaints of chest pain No complaints of shortness of breath No nausea vomiting diarrhea Physical Exam Vital Signs: Vital Signs: Last Vital Signs Temp 97.0 F 02/15/21 11:32 Pulse 100 02/15/21 11:32 Resp 18 02/15/21 11:32 BP 105/53 L 02/15/21 11:32 Pulse Ox 98 02/15/21 11:32 Oxygen Flow Rate 4 02/14/21 14:08 Body Mass Index 26.4 Const: Other: Anxious/tachypnea/confuse HENMT: Other: Membranes dry Resp: Other: Tachypneic; diminished all gallardo with dense expiratory wheezes throughout Cardio: Other: Tachycardic; no S4; positive S1-S2; no S3 murmurs rubs or gallops GI: Other: Soft/protuberant. Positive bowel sounds all 4 quadrants no tenderness or peritoneal signs Neuro: Other: Confused at baseline secondary to dementia Extrem: Other: No edema bilaterally Objective Data Active Medications Acetaminophen (Acetaminophen 325 Mg Tablet) 650 mg PO Q6H PRN PRN Reason: Pain, Mild (Pain Scale 1-3) Albuterol Sulfate (Albuterol Sulfate (0.083%) 2.5 Mg/3 Ml Vial.Neb) 2.5 mg INHALE RQ4H PRN PRN Reason: Shortness of Breath/Wheezing Dextrose (Dextrose 50 % 25 Gm/50 Ml Vial) 25 gm IVPUSH Q15M PRN; Protocol PRN Reason: per Hypoglycemia Standing Ord. Enoxaparin Sodium (Enoxaparin Sodium 40 Mg/0.4 Ml Syringe) 40 mg SUBCUT Q24H [facility] Last Admin: 02/14/21 19:43 Dose: 40 mg Documented by: KRISTA Glucose (Glucose Gel 15 Gm Gel..Gram.) 15 gm PO Q15M PRN; Protocol PRN Reason: per Hypoglycemia Standing Ord. Hydroxyzine HCl (Hydroxyzine Hcl 50 Mg/Ml Vial) 25 mg IM RQ6H PRN PRN Reason: anxiety/restlessness Last Admin: 02/15/21 01:12 Dose: 25 mg Documented by: KAVITHA Insulin Human Lispro (Insulin Lispro 100 Unit/Ml 3 Ml Vial) 0 unit SUBCUT QIDACHS [facility]; Protocol Last Admin: 02/15/21 11:36 Dose: Not Given Documented by: YANNICK Non-Admin Reason: NOT EATING Ondansetron HCl (Ondansetron Hcl 4 Mg/2 Ml Vial) 4 mg IVPUSH Q8H PRN PRN Reason: Nausea and Vomiting Pharmacy Consult (Consult Rx Perform Med Rec) 1 each MISCELLANE ONCE PRN PRN Reason: Consult order Sodium Chloride (0.9 % Sodium Chloride Flush 3 Ml Syringe) 3 ml IVFLUSH [facility] Last Admin: 02/15/21 11:01 Dose: 3 ml Documented by: YANNICK Labs CBC & Chem 7: 02/15/21 07:43 02/15/21 07:43 Labs: Laboratory Results - last 24 hr 02/14/21 02/14/21 02/14/21 14:53 14:53 14:54 MCV MCH MCHC RDW Plt Count MPV Immature Gran % (Auto) Neut % (Auto) Lymph % (Auto) [place] % (Auto) Eos % (Auto) Baso % (Auto) Lymph # (Auto) [place] # (Auto) Eos # (Auto) Baso # (Auto) Abs Immat Gran (auto) Absolute Neuts (auto) Absolute Nucleated RBC Nucleated RBC % (auto) Smear Tech's Comments Anion Gap 14 Estim Creat Clear Calc 33.8 Estimated GFR 57 POC Glucose Random Glucose 452 H* Lactic Acid 1.0 Calcium 8.6 D Total Bilirubin 0.3 AST 12 D ALT 11 Alkaline Phosphatase 193 H D Troponin I High Sens 8.8 Total Protein 6.5 Albumin 3.9 Lipase 17 Urine Color Urine Appearance Urine pH Ur Specific [place] Urine Protein Urine Glucose (UA) Urine Ketones Urine Blood Urine Nitrite Ur Leukocyte Esterase Urine RBC Urine WBC Ur Squamous Epith Cells Urine Bacteria COVID-19 ([facility]) COVID-19 Clin Com 02/14/21 02/14/21 02/14/21 14:55 15:45 17:22 MCV 85.5 MCH 26.8 L MCHC 31.3 RDW 13.2 Plt Count TNP MPV 10.1 Immature Gran % (Auto) 0.7 H Neut % (Auto) 81.6 H Lymph % (Auto) 8.2 L [place] % (Auto) 8.0 Eos % (Auto) 1.1 Baso % (Auto) 0.4 Lymph # (Auto) 0.7 L [place] # (Auto) 0.7 Eos # (Auto) 0.1 Baso # (Auto) 0.0 Abs Immat Gran (auto) 0.06 H Absolute Neuts (auto) 6.86 Absolute Nucleated RBC 0.000 Nucleated RBC % (auto) 0.0 Smear Tech's Comments VERIFIED Anion Gap Estim Creat Clear Calc Estimated GFR POC Glucose 361 H* Random Glucose Lactic Acid Calcium Total Bilirubin AST ALT Alkaline Phosphatase Troponin I High Sens Total Protein Albumin Lipase Urine Color Urine Appearance Urine pH Ur Specific [place] Urine Protein Urine Glucose (UA) Urine Ketones Urine Blood Urine Nitrite Ur Leukocyte Esterase Urine RBC Urine WBC Ur Squamous Epith Cells Urine Bacteria COVID-19 ([facility]) Negative COVID-19 Clin Com See Note 02/14/21 02/14/21 02/14/21 19:27 19:28 20:51 MCV MCH MCHC RDW Plt Count MPV Immature Gran % (Auto) Neut % (Auto) Lymph % (Auto) [place] % (Auto) Eos % (Auto) Baso % (Auto) Lymph # (Auto) [place] # (Auto) Eos # (Auto) Baso # (Auto) Abs Immat Gran (auto) Absolute Neuts (auto) Absolute Nucleated RBC Nucleated RBC % (auto) Smear Tech's Comments Anion Gap Estim Creat Clear Calc Estimated GFR POC Glucose 243 H 224 H Random Glucose Lactic Acid Calcium Total Bilirubin AST ALT Alkaline Phosphatase Troponin I High Sens Total Protein Albumin Lipase Urine Color YELLOW Urine Appearance CLEAR Urine pH 6.0 Ur Specific [place] 1.010 Urine Protein NEG Urine Glucose (UA) >=1000 H Urine Ketones NEG Urine Blood NEG Urine Nitrite NEG Ur Leukocyte Esterase TRACE H Urine RBC 0-2 Urine WBC 1-4 Ur Squamous Epith Cells 1+ Urine Bacteria NONE COVID-19 ([facility]) COVID-19 Clin Com 02/14/21 02/15/21 02/15/21 23:40 07:43 07:43 MCV 85.8 MCH 26.5 L MCHC 30.9 L RDW 13.2 Plt Count 327 MPV 9.8 Immature Gran % (Auto) 0.4 Neut % (Auto) 86.6 H Lymph % (Auto) 5.4 L [place] % (Auto) 7.2 Eos % (Auto) 0.2 Baso % (Auto) 0.2 Lymph # (Auto) 0.8 L [place] # (Auto) 1.0 Eos # (Auto) 0.0 Baso # (Auto) 0.0 Abs Immat Gran (auto) 0.05 H Absolute Neuts (auto) 12.24 H Absolute Nucleated RBC 0.000 Nucleated RBC % (auto) 0.0 Smear Tech's Comments Anion Gap 14 Estim Creat Clear Calc 39.7 Estimated GFR > 60 POC Glucose 113 Random Glucose 211 H Lactic Acid Calcium 8.7 Total Bilirubin AST ALT Alkaline Phosphatase Troponin I High Sens Total Protein Albumin Lipase Urine Color Urine Appearance Urine pH Ur Specific [place] Urine Protein Urine Glucose (UA) Urine Ketones Urine Blood Urine Nitrite Ur Leukocyte Esterase Urine RBC Urine WBC Ur Squamous Epith Cells Urine Bacteria COVID-19 ([facility]) COVID-19 Clin Com 02/15/21 02/15/21 07:55 11:32 MCV MCH MCHC RDW Plt Count MPV Immature Gran % (Auto) Neut % (Auto) Lymph % (Auto) [place] % (Auto) Eos % (Auto) Baso % (Auto) Lymph # (Auto) [place] # (Auto) Eos # (Auto) Baso # (Auto) Abs Immat Gran (auto) Absolute Neuts (auto) Absolute Nucleated RBC Nucleated RBC % (auto) Smear Tech's Comments Anion Gap Estim Creat Clear Calc Estimated GFR POC Glucose 220 H 178 H Random Glucose Lactic Acid Calcium Total Bilirubin AST ALT Alkaline Phosphatase Troponin I High Sens Total Protein Albumin Lipase Urine Color Urine Appearance Urine pH Ur Specific [place] Urine Protein Urine Glucose (UA) Urine Ketones Urine Blood Urine Nitrite Ur Leukocyte Esterase Urine RBC Urine WBC Ur Squamous Epith Cells Urine Bacteria COVID-19 ([facility]) COVID-19 Clin Com Microbiology Microbiology Results: Microbiology 02/14/21 19:37 Urine Culture - Preliminary Urine clean catch - Urine otero top No growth to date. Assessment and Plan (1) Aspiration pneumonitis: Status: Acute Assessment and Plan: 85-year-old female presents via ambulance to the emergency room after aspirating coffee a local SNF. Resident became acutely short of breath not responding to supplemental oxygen. Overnight, the patient has become more somnolent but respirations are easy and nonlabored. 1. Aspiration pneumonitis Continue IV Zosyn; pulse dose steroids. Titrate O2 to maintain sats greater than equal to 92%. Query change in status due to fatigue or natural progression of disease. Will discuss with daughter later in the day 2. Diabetes type 2 Sliding scale .. No orals at this time as patient is not responsive 3. Dementia Continue outpatient therapies 4. Hypertension Continue verapamil/ lisinopril/ hydrochlorothiazide as outpatient dosing DNR DNI [place] Quality Stroke Does the patient have a stroke diagnosis?: No VTE Prior VTE?: No VTE Risk Level:: Medical - moderate - high VTE Device Contraindication: Treatment Not Indicated VTE Drug Contraindication: N/A - Med Ordered
--- NOTE | 2021-02-15 15:46 | MHC.CM.PN ---
nurse care manger note electronic medical record reviewed , although with case discussed with hospitalist on multiple disciplianry rounds, pmet with patients daughter sonia guardado, she reported she would like very much for her mother to be able to go back to the [facility] (initially with this admission they thought she may have to go to another facility secondary to wandering/ physician noted she may be too weak to wonder, patients daughter verbalized that her mother is declining and wants her back [id number] to he\ar back from woud need action bls transferat [facility]
[2021-02-15 16:00] VITALS: BP 126/90; PULSE 105; RESP 18; TEMP 37; O2SAT 97
[2021-02-15 17:03] LABS: Glucose, Whole Blood 162 mg/dL (60-115)
[2021-02-15] MEDS: Enoxaparin Sodium 40 MG/0.4 ML SYRINGE SUBCUT (17:20)
[2021-02-15 19:29] VITALS: BP 130/60; PULSE 76; RESP 18; TEMP 36.3; O2SAT 98
[2021-02-15 20:18] LABS: Glucose, Whole Blood 288 mg/dL (60-115)
[2021-02-15] MEDS: Insulin Lispro 100 UNIT/ML 3 ML VIAL SUBCUT (21:09)
[2021-02-16] VITALS: BP 158/74; PULSE 110; RESP 16; TEMP 36.7; O2SAT 92
[2021-02-16 04:00] VITALS: BP 151/67; PULSE 108; RESP 18; TEMP 36.3; O2SAT 100
[2021-02-16 05:44] LABS: MANUAL DIFF FLAG NO
[2021-02-16 05:58] LABS: Basophils Percent Auto 0.3 % (0-2); Eosinophils Absolute Auto 0.3 X10*3/uL (0.0-0.4); Eosinophils Percent Auto 2.8 % (0-4); Hematocrit 32.5 % (37.0-47.0); Hemoglobin 9.9 g/dl (12.0-16.0); Imm Gran Abs Auto 0.04 X10*3/uL (0.00-0.03); Imm Gran Pct Auto 0.4 % (0.0-0.4); Lymphocytes Absolute Auto 0.7 X10*3/uL (1.2-4.9); Lymphocytes Percent Auto 6.9 % (20-40); Mean Corpuscular HGB Conc 30.5 g/dl (31.0-35.0); Mean Corpuscular Hemoglobin 26.5 pg (27.0-33.0); Mean Corpuscular Volume 86.9 fL (80.0-98.0); Mean Platelet Volume 9.8 fL (9.4-12.3); Neutrophils Absolute Auto 7.92 x10*3/uL (2.0-8.3); Neutrophils Percent Auto 79.6 % (45-73); Platelet Count 340 X10*3/uL (160-400); Red Blood Count 3.74 X10*6/uL (4.20-5.50); Red Cell Distribution Width 13.4 % (11.0-16.0)
[2021-02-16 06:11] LABS: Anion Gap 14 (12-20); Blood Urea Nitrogen 10 mg/dL (9-16); Calcium 8.9 mg/dL (8.4-10.2); Carbon Dioxide 32 mmol/L (22-29); Chloride 98 mmol/L (96-108); Creatinine Clr Calc Pharmacy 47.5; Estimated Glomerular Filt Rate > 60; Glucose Random 101 mg/dL (60-115); Potassium 3.7 mmol/L (3.3-5.1); Sodium 140 mmol/L (135-145)
[2021-02-16 07:19] VITALS: BP 143/72; PULSE 106; RESP 18; TEMP 36; O2SAT 96
[2021-02-16 07:47] LABS: Glucose, Whole Blood 146 mg/dL (60-115)
[2021-02-16] MEDS: 0.9 % Sodium Chloride Flush 3 ML SYRINGE IVFLUSH (08:35)
--- NOTE | 2021-02-16 10:14 | MHC.SL.SWA ---
Speech Pathologist Impression: Risk of Aspiration Risk of Aspiration Due to: Reduced Cognition Dysphasia Diet Status: No Change Liquid Consistency and Strategies for Safe Swallow: Liquid Intake Recommendation: Thin Liquid Intake Strategies: Small Sips No Straws Solid Food Consistency: Dietary Recommendations: Regular Additional Modifications to Solid Foods: extra sauce/gravy on meats. Aspiration precautions and intermittent supervision recommended to encourage pt to utilize a slow rate of intake. Oral Medication Intake: Whole with Liquid Compensatory Strategies and Precautions to be Taken for Safe Swallow: Sitting Upright (90 deg) No Straw Liquids from Cup Small Bites and Sips Alternate Liquids/Solids Rate of Ingestion Change Supervision While Eating and Drinking for Safe Swallow: Intermittent Supervision Foods to Avoid: dry, crunchy, sticky solids Swallowing Recommended Treatments: Compens. Strategy Educat. Recommendation for Speech: Inpatient Speech Therapy Comment: x1 follow-up session Updated with RN and MD via secure tiger text re: the recommendation to continue with regular consistency solids, thin liquids, medications whole with water/in puree, aspiration precautions, and intermittent supervision during PO intake. Pt's coughing with intake of liquids at her SNF is suspected to be an isolated instance likely related to fast rate of intake. A 1x ST follow-up is recommended for teaching of strategies and to ensure continued tolerance of her recommended diet consistency. Soldering Machine Setter Clinican/Clinical Fellow: No Supervisory Statement: I have reviewed and agree with the student/clinical fellow's documentation: N/A Speech Language Pathologist: Nely Eldridge M.A., CCC-DIPLOMA MAKER
[2021-02-16 11:21] VITALS: BP 129/60; PULSE 105; RESP 18; TEMP 36.7; O2SAT 89
[2021-02-16 11:48] LABS: Glucose, Whole Blood 304 mg/dL (60-115)
[2021-02-16] MEDS: Insulin Lispro 100 UNIT/ML 3 ML VIAL SUBCUT ×2 (11:51→16:47)
--- NOTE | 2021-02-16 13:32 | PM.DS ---
DS: Providers Provider Date of Service: 02/16/21 Date of admission: 02/14/21 18:05 Primary care physician: Unknown Physician DS: Diagnosis Discharge Diagnosis (1) Aspiration pneumonitis: Status: Acute DS: Summary Hospital Course Hospital Course: ?85-year-old female presents via ambulance to the emergency room after aspirating coffee a local SNF.? Resident became acutely short of breath not responding to supplemental oxygen. Patient is a do not intubate and do not resuscitate but the daughter wants the patient to receive care and treatment to include oxygen, antibiotics, and medications.? Hospital course Patient was admitted to [facility] on IV Zosyn and pulse dose steroids along with supplemental O2. Over the next 48 hours, oxygen was able to be weaned and she was back at baseline per daughter. Speech saw patient and did not have any recommendations other than moist heating food with gravy ex [employer]eter[employer]. At this point in time should be discharge back to SNF to complete a course of Augmentin and steroid taper Time Spent with Patient Time attestation: Total time spent providing and/or coordinating discharge services: Discharge coordination time: Greater than 30 minutes Quality: Stroke Does the patient have a stroke diagnosis?: No Physical Exam Vital Signs: Vital Signs: Last Vital Signs Temp 98.1 F 02/16/21 11:21 Pulse 105 H 02/16/21 11:21 Resp 18 02/16/21 11:21 BP 129/60 02/16/21 11:21 Pulse Ox 89 L 02/16/21 11:21 Oxygen Flow Rate 4 02/14/21 14:08 Body Mass Index 26.4 Const: Other: Resting quietly in no acute distress HENMT: Other: Membranes dry Resp: Other: Clear to auscultation bilaterally. No rales rhonchi or wheezes Cardio: Other: No S4; positive S1-S2; no S3 murmur she was ago GI: Other: Soft/protuberant. Positive bowel sounds all 4 quadrants no tenderness or peritoneal signs Neuro: Other: At baseline per daughter Extrem: Other: No edema bilaterally DS: Data Data Completed and Pending Labs on day of discharge: Laboratory Results - last 24 hr 02/15/21 02/15/21 02/16/21 16:00 20:12 05:34 WBC 10.0 RBC 3.74 L Hgb 9.9 L Hct 32.5 L MCV 86.9 MCH 26.5 L MCHC 30.5 L RDW 13.4 Plt Count 340 MPV 9.8 Immature Gran % (Auto) 0.4 Neut % (Auto) 79.6 H Lymph % (Auto) 6.9 L [place] % (Auto) 10.0 Eos % (Auto) 2.8 Baso % (Auto) 0.3 Lymph # (Auto) 0.7 L [place] # (Auto) 1.0 Eos # (Auto) 0.3 Baso # (Auto) 0.0 Abs Immat Gran (auto) 0.04 H Absolute Neuts (auto) 7.92 Absolute Nucleated RBC 0.000 Nucleated RBC % (auto) 0.0 Sodium Potassium Chloride Carbon Dioxide Anion Gap BUN Creatinine Estim Creat Clear Calc Estimated GFR POC Glucose 162 H 288 H Random Glucose Calcium 02/16/21 02/16/21 02/16/21 05:34 07:19 11:44 WBC RBC Hgb Hct MCV MCH MCHC RDW Plt Count MPV Immature Gran % (Auto) Neut % (Auto) Lymph % (Auto) [place] % (Auto) Eos % (Auto) Baso % (Auto) Lymph # (Auto) [place] # (Auto) Eos # (Auto) Baso # (Auto) Abs Immat Gran (auto) Absolute Neuts (auto) Absolute Nucleated RBC Nucleated RBC % (auto) Sodium 140 Potassium 3.7 Chloride 98 Carbon Dioxide 32 H Anion Gap 14 BUN 10 Creatinine 0.66 Estim Creat Clear Calc 47.5 Estimated GFR > 60 POC Glucose 146 H 304 H Random Glucose 101 Calcium 8.9 Preliminary micro results at discharge 02/14/21 15:46 Blood Culture - Preliminary Blood - Venous No growth after 24 hours. 02/14/21 14:53 Blood Culture - Preliminary Blood - Venous No growth after 24 hours. Discharge Plan Discharge Patient Disposition: Xfer Inpatient Rehab Fac Discharge Diagnosis: Aspiration pneumonitis Referrals: [facility] [Outside] - 1 Week Physician,Unknown J [Primary Care Provider] - 1 Week Discharge Medications: New prednisone 20 mg tablet See Rx Instructions .ROUTE .COMPLEX Qty: 18 RF: 0 amoxicillin-pot clavulanate [Augmentin] 875-125 mg tablet 1 tab PO BID Qty: 14 RF: 0 Continued metformin 500 mg Tablet 1,000 mg PO BID RF: 0 sennosides [Senna Laxative] 8.6 mg Tablet 17.2 mg PO DAILY PRN (Reason: Constipation) RF: 0 acetaminophen 325 mg Tablet 650 mg PO Q4H PRN (Reason: Mild Pain (Scale Score 1-4)) RF: 0 Lantus U-100 Insulin 100 unit/mL Solution 6 unit SUBCUT DAILY RF: 0 cyanocobalamin (vitamin B-12) 1,000 mcg Tablet 1,000 mcg PO DAILY RF: 0 bisacodyl 10 mg Suppository 10 mg ND DAILY PRN (Reason: Constipation) RF: 0 lisinopril 10 mg Tablet 10 mg PO DAILY RF: 0 omeprazole 20 mg Capsule,Delayed Release(Dr/Ec) 20 mg PO DAILY RF: 0 verapamil 240 mg Tablet Extended Release 240 mg PO DAILY RF: 0 montelukast 10 mg Tablet 10 mg PO DAILY RF: 0 albuterol sulfate [ProAir HFA] 90 mcg/actuation Hfa Aerosol Inhaler 2 puff INHALATION Q4-6H PRN (Reason: Wheezing) RF: 0 melatonin 5 mg Tablet 5 mg PO BEDTIME RF: 0 furosemide 40 mg tablet 1 tab PO BID RF: 0 latanoprost 0.005 % drops 1 drp ophthalmic (eye) BEDTIME RF: 0 trazodone 50 mg tablet 0.25 tab PO BID PRN (Reason: Insomnia) RF: 0 olanzapine 5 mg tablet 1 tab PO BEDTIME RF: 0 insulin lispro 100 unit/mL solution See Protocol sliding scale dose subcut RF: 0 acetaminophen 325 mg Tablet 650 mg PO BID RF: 0 aspirin 81 mg Tablet,Delayed Release (Dr/Ec) 81 mg PO DAILY RF: 0 Discharge Orders: Discharge Order (Routine); Ordered 02/16/21 Ordered By: Ryan Aguilar Diet: advance to usual diet Activity on Discharge: As tolerated Stand Alone Forms: Patient Portal Discharge page Care Plan Goals: Maintain highest level of function Health Concerns: Follow-up with speech therapy at [facility] Plan of Treatment: As ordered Assessment: Pneumonitis resolving
--- NOTE | 2021-02-16 13:47 | MHC.CM.PN ---
IMM 02/14/21 Female 85 DX Pneumonia is discharged today. Her dtr Florencia has been notified. 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 She will transfer back to [facility] via BLS.
[2021-02-16 14:31] LABS: COVID-19 Test Negative (Negative); IDNOW Serial# 08D9AD1C
[2021-02-16 15:22] VITALS: BP 121/67; PULSE 111; RESP 18; TEMP 36.4; O2SAT 92
[2021-02-16 16:42] LABS: Glucose, Whole Blood 239 mg/dL (60-115)
== END 2021-02-16 19:51 | DRG 179 ==
LOC: HO.ED 17:09 → HO.EDOVER 18:15 → HO.IMC 21:57 → HO.S3 02-15 04:37
PROVIDERS: Admitting Provider Hospitalist; Emergency Provider Emergency Medicine Emergency Medical Services; PCP Internal Medicine; Visit Provider Hospitalist
DX: J69.0 Pneumonitis due to inhalation of food and vomit (principal); E11.9 Type 2 diabetes mellitus without complications; F03.90 Unspecified dementia, unspecified severity, without behavioral disturbance, psychotic disturbance, mood disturbance, and anxiety; Z20.822 Contact with and (suspected) exposure to COVID-19; Z87.891 Personal history of nicotine dependence; Z79.4 Long term (current) use of insulin; Z79.82 Long term (current) use of aspirin; Z79.899 Other long term (current) drug therapy; Z66 Do not resuscitate
CPT/HCPCS: 36415; 71045; 80048; 80053; 81001; 82947; 83605; 83690; 84484; 85025; 87040; 87086; 87635; 92610; 93005; 96361; 96365; 96375; 96376; 99285; 99291; J1650; J2543